=== PATIENT | female | born 1995 | race Two or more races ===

== ENCOUNTER 2016-10-15 13:10 | Emergency (ER) | payer OTHER ==
[2016-10-15] MEDS ORDERED: IOPAMIDOL 300 (61%) 100 ML VIAL IV ONE (13:11)
[2016-10-15] MEDS ORDERED: ONDANSETRON 4 MG/2ML 2 ML VIAL ONE (14:09)
[2016-10-15] MEDS ORDERED: MORPHINE SULFATE 4 MG/ML SYRINGE ONE (14:09)
[2016-10-15 14:15] LABS: URINE BILIRUBIN NEGATIVE (NEGATIVE); URINE BLOOD NEGATIVE (NEGATIVE); URINE GLUCOSE (UA) NEGATIVE (NEGATIVE); URINE LEUKOCYTE ESTERASE TRACE (NEGATIVE); URINE NITRITE NEGATIVE (NEGATIVE); URINE PROTEIN NEGATIVE (NEGATIVE); URINE UROBILINOGEN NORMAL (0-1 mg/dl)
[2016-10-15 14:16] LABS: URINE APPEARANCE CLEAR; URINE COLOR YELLOW
[2016-10-15 14:16] LABS: ABSOLUTE NEUTROPHIL COUNT 7.2 K/mm3 (1.8-7.7); BASO % 0.4 % (0.2-1.0); EOS # 0.1 (0.0-0.5); EOS % 0.9 % (0.9-2.9); HEMATOCRIT 42.5 % (37.0-47.0); HEMOGLOBIN 14.2 gm/l (12.0-16.0); IMM NEUT% 0.4 % (0-1); LYMPH # 1.8 (1.0-4.8); LYMPH % 18.1 % (15-45); MEAN CELL VOLUME 88.4 fl (81.0-99.0); MEAN CORPUSCULAR HEMOGLOBIN 29.5 pg (27.0-31.0); MEAN CORPUSCULAR HGB CONC 33.4 g/dl (33.0-37.0); MEAN PLATELET VOLUME 11.6 fl (7.4-10.4); MONO # 0.6 (0.0-0.8); MONO % 6.3 % (4-12); NEUT % 73.9 % (43-75); PLATELET COUNT 220 K/mm3 (130-400); RED CELL DISTRIBUTION WIDTH 13.2 % (11.5-14.5)
[2016-10-15 14:28] LABS: URINE RBC 0-1 /hpf; URINE WBC 0-1 /hpf
[2016-10-15 14:29] LABS: URINE BACTERIA RARE
[2016-10-15 14:45] LABS: ALB/GLOB RATIO 1.3 (>1.0); ALBUMIN 4.4 gm/dL (3.5-5.7); CALCIUM 9.5 mg/dL (8.6-10.3)
--- NOTE | 2016-10-15 15:21 | CT ---
CT ABDOMEN AND PELVIS WITH CONTRAST HISTORY: Left inguinal pain, possible mass lesion. TECHNIQUE: Following intravenous administration of 100 mL Isovue-300, contiguous axial images were acquired from the lung bases to the ischial tuberosities. Oral contrast was not administered. COMPARISON:06/21/2014 FINDINGS: LUNG BASES: No gross airspace consolidation or pleural effusion. LIVER: No focal lesion. SPLEEN: No focal lesion. PANCREAS: No focal lesion. ADRENAL GLANDS: No mass effect. KIDNEYS: No focal lesion. No collecting system dilatation. GALLBLADDER: Present. BOWEL: Moderate fecal loading. Limited assessment of the distal colon due to decompression. No abnormal small bowel dilatation. APPENDIX: Normal gas-filled appendix. PELVIC ORGANS: Intrauterine device is identified. Small cystic foci of the left adnexal region, measuring up to 1.7 cm in size. Overall this region measures 2.7 x 2.5 x 2.4 cm in size. FREE FLUID: No gross free fluid identified. Inguinal regions: Small fatty inguinal hernias, left greater than right, without bowel content or fluid. No gross regional adenopathy. ABDOMINOPELVIC LYMPH NODES: No abnormally enlarged lymph nodes identified. ABDOMINAL AORTA: Normal caliber. OSSEOUS STRUCTURES: No grossly destructive lesions. IMPRESSION: 1. Findings of fatty inguinal hernias, left greater than right. No gross inguinal adenopathy or soft tissue mass lesion identified. 2. Complex cystic change of the left ovary, up to 2.7 cm in size, recommend eventual sonography. Intrauterine device identified. 3. Nonobstructive, noninflammatory appearance of bowel. Normal appendix. No gross free fluid. Results were electronically transmitted to the electronic medical record at 10/15/2016 at 1517 hours.
== END 2016-10-15 16:11 | disposition home or self-care (01) ==
LOC: ED 13:10
DX: N83.202 Unspecified ovarian cyst, left side (principal); K40.20 Bilateral inguinal hernia, without obstruction or gangrene, not specified as recurrent; R11.0 Nausea
CPT/HCPCS: 85379; 84703; 85025; 80053; 81001; 74177; 96375; 99283; 96374; 96361 ×2; 99284; J2270; J2405; Q9967